=== PATIENT | female | born 1980 | race Caucasian/White ===

== ENCOUNTER 2020-08-04 05:59 | Inpatient (IN) | payer OTHER ==
[~2020-08-04] VITALS: Ht 168.9 cm; Wt 77.1 kg
[2020-08-04] MEDS ORDERED: PNV1TABL76 PO (06:44)
[2020-08-04] MEDS ORDERED: NALOXONE HCL 0.4 MG/ML 1ML VIAL IM PRN (06:45)
[2020-08-04] MEDS ORDERED: LACTATED RINGERS 1,000 ML IV SCH (06:45)
[2020-08-04] MEDS ORDERED: CARBOPROST TROMETHAMINE 250 MCG/ML AMPUL IM PRN (06:45)
[2020-08-04] MEDS ORDERED: METHYLERGONOVINE MALEATE 0.2 MG/ML IM PRN (06:45)
[2020-08-04] MEDS ORDERED: ONDANSETRON HCL 4MG/2ML INJ IV PRN (07:30)
[2020-08-04] MEDS ORDERED: OXYCODONE HCL/ACETAMINOPHEN 5/325MG TABLET PO PRN (07:30)
[2020-08-04] MEDS ORDERED: LANOLIN OINT 7GM TUBE TOP PRN (07:30)
[2020-08-04] MEDS ORDERED: HYDROCODONE/ACETAMINOPHEN 5/325MG TABLET PO PRN (07:30)
[2020-08-04 07:43] LABS: BASOPHILS % 0.5 % (0.0-2.0); EOSINOPHILS % 1.8 % (0.0-5.0); HEMATOCRIT. 27.5 % (36.0-48.0); MEAN CORPUSCULAR HEMOGLOBIN 28.6 pg (28.0-32.0); MEAN CORPUSCULAR VOLUME 87.1 fL (81.0-99.0); MEAN PLATELET VOLUME 10.5 fl (7.4-10.4); MONOCYTES % 8.5 % (2.0-8.0); NEUTROPHILS % 72.2 % (40.0-76.0); PLATELET 156 x1000/uL (130-400); RED BLOOD CELL COUNT 3.16 mill/uL (4.2-5.4); RED CELL DISTRIBUTION WIDTH 14.4 % (11.6-14.6)
[2020-08-04 07:45] LABS: CLARITY URINE CLOUDY (CLEAR); COLOR URINE YELLOW (YELLOW); KETONES URINE NEGATIVE (NEGATIVE); LEUKOCYTE ESTERASE URINE NEGATIVE (NEGATIVE); NITRITE URINE NEGATIVE (NEGATIVE); OCCULT BLOOD URINE NEGATIVE (NEGATIVE); PROTEIN URINE NEGATIVE (NEGATIVE); UROBILINOGEN URINE 0.2 E.U./dL (0.2-1.0)
[2020-08-04] MEDS ORDERED: DIPHENHYDRAMINE 50MG/ML VIAL IV PRN (07:45)
[2020-08-04] MEDS ORDERED: KETOROLAC 30MG/ML VIAL IV PRN (07:45)
[2020-08-04] MEDS ORDERED: MORPHINE SULFATE/PF 1MG/ML 10ML AMP ONE (07:47)
[2020-08-04 07:57] LABS: INR 0.9; PARTIAL THROMBOPLASTIN TIME 28.7 sec (23.4-31.0); PROTHROMBIN TIME 10.2 sec (9.6-11.0)
[2020-08-04] MEDS ORDERED: ONDANSETRON HCL 4MG/2ML INJ ONE (07:58)
[2020-08-04] MEDS ORDERED: PHENYLEPHRINE HCL 10 MG/ML 1ML (IV VIAL) IV ONE (07:58)
[2020-08-04] MEDS ORDERED: METOCLOPRAMIDE HCL 10MG/2ML VIAL ONE (07:58)
[2020-08-04] MEDS ORDERED: EPHEDRINE SULFATE 50MG/ML VIAL ONE (07:59)
[2020-08-04] MEDS ORDERED: SODIUM CHLORIDE 0.9% 10ML VIAL ONE ×2 (07:59→08:02)
[2020-08-04] MEDS ORDERED: CITRIC ACID/SODIUM CITRATE SOLN 30ML UDC PO SCH (08:00)
[2020-08-04] MEDS ORDERED: CEFAZOLIN SODIUM 1000MG/VIAL ONE (08:02)
[2020-08-04 08:06] LABS: *AMPHETAMINES SCREEN URINE NEGATIVE (NEGATIVE); *BARBITURATES SCREEN URINE NEGATIVE (NEGATIVE); *BENZODIAZEPINES SCREEN URINE NEGATIVE (NEGATIVE); *COCAINE SCREEN URINE NEGATIVE (NEGATIVE); METHADONE URINE SCREEN NEGATIVE (NEGATIVE); OPIATES URINE SCREEN NEGATIVE (NEGATIVE)
[2020-08-04] MEDS ORDERED: GLYCOPYRROLATE 0.2 MG/ML 2ML VIAL ONE ×2 (08:06→08:07)
[2020-08-04 08:07] LABS: PHENCYCLIDINE URINE SCREEN NEGATIVE (NEGATIVE)
[2020-08-04 08:08] LABS: CANNABINOID URINE SCREEN PRESUMTIVE POSITIVE (NEGATIVE)
[2020-08-04] MEDS ORDERED: INFLUENZA VACCINE 05/PF 0.5 ML VIAL IM ONE (09:15)
[2020-08-04] MEDS ORDERED: DEXT 5%/LR + PITOCIN 20UNITS/L 1,000 ML IV SCH (11:00)
[2020-08-04 12:00] VITALS: BP 90/55
[2020-08-04 12:30] VITALS: BP 92/51
[2020-08-04 12:32] LABS: HEPATITIS B SURFACE ANTIGEN NEGATIVE
[2020-08-04 16:15] VITALS: BP 96/50
[2020-08-04 19:10] VITALS: BP 97/55
[2020-08-04] MEDS ORDERED: DOCUSATE SODIUM 100MG CAPSULE PO SCH (21:00)
[2020-08-04 23:03] VITALS: BP 98/56
[2020-08-05 04:00] VITALS: BP 99/58
[2020-08-05] MEDS: IBUPROFEN 400MG TABLET PO PRN ×2 (06:28→12:52)
[2020-08-05 07:30] VITALS: BP 92/54
[2020-08-05] MEDS ORDERED: INFLUENZA VACCINE 05/PF 0.5 ML VIAL IM ONE ×2 (09:00→09:45)
[2020-08-05] MEDS ORDERED: HYDR-4350 MT (12:29)
[2020-08-12 10:09] LABS: CANNABINOID CONFIRMATION URINE Positive (.)
== END 2020-08-05 16:50 | disposition home or self-care (01) | DRG 785 ==
LOC: 8 EST LDRP 05:59 → OBSVTOIN 05:59 → 8EST 11:40
PROVIDERS: ADMIT Obstetrics & Gynecology; ATTEND Obstetrics & Gynecology
PROC: 10D00Z1 Extraction of Products of Conception, Low, Open Approach (ICD-10-PCS; principal; 2020-08-04)
PROC: 0UB70ZZ Excision of Bilateral Fallopian Tubes, Open Approach (ICD-10-PCS; 2020-08-04)
DX: O34.211 Maternal care for low transverse scar from previous cesarean delivery (principal); Z30.2 Encounter for sterilization; Z37.0 Single live birth; Z3A.39 39 weeks gestation of pregnancy
CPT/HCPCS: 36415; 80305; 80349; 81003; 85025; 86592; 86703; 86762; 86850; 86900; 87340; 88302; 90686; J0690; J1885; J2274; J2370; J2405; J2590; J2765; J3490; J7120; A4315